=== PATIENT | female | born 1945 | race Caucasian/White ===

== ENCOUNTER → 2019-06-14 08:49 | Outpatient (CLI) | payer MEDICARE ==
--- NOTE | 2019-06-19 14:31 | EC ---
PATIENT:KASANDRA MEDINA DATE OF SERVICE: 06/14/19 SEX: F MEDICAL RECORD: [id number] DATE OF : 45 LOCATION:[facility] AGE OF PATIENT: 74 ADMISSION DATE: 06/14/19 REFERRING PHYSICIAN: INTERPRETING PHYSICIAN: KIMBERLEE VERGARA MD ECHOCARDIOGRAM REPORT ECHO CHARGES 4 ECHO COMPLETE Date: 06/14/19 CLINICAL DIAGNOSIS: DYSPNEA HX OF AORTIC STENOSIS ECHOCARDIOGRAPHIC MEASUREMENTS (adult normal given) AC root (d.<3.7cm) 3.3 cm LV Septum d (<1.2 cm> 1.3 cm Valve Excursion 1.6 cm LV Septum (systole) 1.6 cm Left Atria (s.<4.0cm> 4.0 cm LVPW d(<1.2cm) 1.6 cm RV (d.<2.3cm) 3.7 cm LVPW (sytole) 1.7 cm LV diastole(<5.6CM) 4.6 cm MV E-F(>70mm/sec) cm LV systole 2.7 cm LVOT Diameter 1.8 cm MV exc.(>10mm) 1.2 cm Est.ejection fraction (50-75%) % DOPPLER: LVIT cm/sec A 68.0 cm/sec E 81.0 cm/sec LA cm/sec RVSP 61 mmHg LVOT 162 cm/sec AOP1/2T m/s Asc. 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 Vergara TAPE# PACS Pericardial Effusion N DATE OF SERVICE: 06/14/2019 PROCEDURE: Echocardiogram. FINDINGS: 1. Left ventricular chamber size is within normal limits. Left ventricular systolic function is normal at 60% to 65%. 2. Left atrium is upper limits of normal at 4.0 cm. Right atrium and right ventricular chamber sizes are within normal limits. 3. Valvular structures: Aortic valve demonstrates [id number] calcific ECHOCARDIOGRAM REPORT [id number] KASANDRA MEDINA aortic stenosis. The valve area calculates to 1.3 cm-squared with a gradient of 38 mm across the valve. The remaining valvular structures have normal structure and motion. 4. Doppler interrogation elsewise reveals mild aortic insufficiency, moderate tricuspid regurgitation, no other valvular insufficiency or stenosis. Pulmonary systolic pressure is elevated estimated at 61 mmHg. 5. No evidence of pericardial effusion or left ventricular thrombus. TRANSINT:[id number] Voice Confirmation ID: [id number] DOCUMENT ID: [id number] KIMBERLEE VERGARA MD at 1431 CC: [id number] DICTATION DATE: 06/14/19 1115 SEED BUYER: 06/14/19 1155 DEP CLI 06/14/19 [id number] [place] [id number]
== END | disposition home or self-care (01) ==
LOC: D.ECHO 08:49 → D.RT 10:00
PROVIDERS: ATTEND Internal Medicine Pulmonary Disease
DX: R06.00 Dyspnea, unspecified (principal)

== ENCOUNTER → 2019-07-31 13:23 | Outpatient (CLI) | payer MEDICARE ==
[2019-07-31 14:38] LABS: ALBUMIN 3.7 g/dL (3.4-5.0); BILIRUBIN - DIRECT 0.1 mg/dL (0.00-0.30); BILIRUBIN - INDIRECT 0.24 mg/dL (0.00-1.00); BILIRUBIN - TOTAL 0.34 mg/dL (0.2-1.3); THYROID STIMULATING HORMONE 0.31 uIU/mL (0.36-3.74)
[2019-08-06 09:09] LABS: ANA REFLEX - DIRECT Negative (Negative)
== END | disposition home or self-care (01) ==
LOC: D.NM 13:23
PROVIDERS: ATTEND Internal Medicine Pulmonary Disease
DX: I27.20 Pulmonary hypertension, unspecified (principal)